=== PATIENT | female | born 1995 | race Caucasian/White ===

== ENCOUNTER 2019-02-13 05:28 | Emergency (ER) | payer BC, OTHER ==
[2019-02-13 06:11] VITALS: TEMP 98; BMI 21.9
--- NOTE | 2019-02-13 07:21 | PDOC ---
History of Present Illness - General Chief Complaint: Vaginal Sxs Stated Complaint: VAGINAL PAIN Time Seen by Provider: 02/13/19 07:20 History Source: Patient Exam Limitations: No Limitations - History of Present Illness Initial Comments: 02/13/19 07:43 23 yo F p/w 1 month of on/off dysuria, and suprapubic pain. Was treated 1 month ago for UTI, has had on/off sx since. Denies hematuria and discharge in urine. Denies vaginal discharge or bleeding. Endorses chills w/ dysuric episodes. No h/o STDs. Sexually active with one partner, not concerned for . No h/o abdominal surgery. LMP / - pt thinks she might be having now but different - spotting. No PMH No Meds No OCPs No Surg. Hx NKDA 02/13/19 07:52 02/13/19 08:00 Past History - Past Medical History Allergies/Adverse Reactions: Allergies Allergy/AdvReac Type Severity Reaction Status Date / Time No Known Allergies Allergy Verified 02/13/19 06:09 Home Medications: Ambulatory Orders NK [No Known Home Medication] 02/13/19 COPD: No - Reproductive History Is Patient Now?: No (unknown at this time) Therapeutic (s) & number: No - Immunization History Immunization Up to Date: Yes - Suicide/Smoking/Psychosocial Hx Smoking History: Never smoked Have you smoked in the past 12 months: No Information on smoking cessation initiated: No Hx Alcohol Use: No Drug/Substance Use Hx: No Review of Systems - Review of Systems Able to Perform ROS?: Yes Is the patient limited [place] proficient: No Constitutional: Yes: Chills. No: Diaphoresis Respiratory: No: Symptoms reported, See HPI, Cough, Orthopnea, Shortness of Breath, SOB with Exertion, SOB at Rest, Stridor, Wheezing, Productive cough, Hemoptysis, Other Cardiac (ROS): No: Symptoms Reported, See HPI, Chest Pain, Edema, Irregular Heart Rate, Lightheadedness, Palpitations, Syncope, Chest Tightness, Other ABD/GI: Yes: Constipated. No: Diarrhea, Nausea, Vomiting : Yes: Burning, Dysuria. No: Discharge *Physical Exam - Vital Signs Last Vital Signs Temp Pulse Resp BP Pulse Ox 98.0 F 70 20 112/81 99 02/13/19 05:35 02/13/19 05:35 02/13/19 05:35 02/13/19 05:35 02/13/19 05:35 - Physical Exam General Appearance: Yes: Nourished, Appropriately Dressed. No: Apparent Distress HEENT: positive: EOMI, PAWAN, Normal Voice, Symmetrical Respiratory/Chest: positive: Lungs Clear, Normal Breath Sounds. negative: Respiratory Distress, Accessory Muscle Use, Rales, Wheezing Cardiovascular: positive: Regular Rhythm, Regular Rate, S1, S2. negative: Murmur Gastrointestinal/Abdominal: positive: Normal Bowel Sounds, Soft. negative: Tender, Guarding, Rebound, Hepatomegaly, Spleenomegaly Medical Decision Making - Medical Decision Making 02/13/19 08:02 23 yo F h/o UTI successfully tx 1 month ago p/w 1 month of on/off dysuria and suprapubic pain. Endorses chills. Denies vaginal discharge or bleeding. Likely UTI - UA, UCx, U-Gn/Ch, UPT 02/13/19 09:27 UPT neg. UA reviewed was on keflex for 5 days previously will treat with macrobid dispo: home with abx 02/13/19 10:19 *DC/Admit/Observation/Transfer Diagnosis at time of Disposition: Urinary tract infection Qualifiers: Urinary tract infection type: acute cystitis Hematuria presence: without hematuria Qualified Code(s): N30.00 - Acute cystitis without hematuria - Discharge Dispostion Disposition: HOME Condition at time of disposition: Good Decision to Admit order: No - Referrals - Patient Instructions Printed Discharge Instructions: DI for Urinary Tract Infection (UTI) Additional Instructions: Please follow up with your primary care doctor in the next 2-3 days about your visit to the Emergency Department. Please return to Emergency Department if you have any of the following: - flank pain - high fevers, chills - inability to eat and drink - Post Discharge Activity
--- NOTE | 2019-02-13 08:38 | PDOC ---
Attending Attestation - Resident Resident Name: David Carter - ED Attending Attestation I have performed the following: I have examined & evaluated the patient, The case was reviewed & discussed with the resident, I agree w/resident's findings & plan, Exceptions are as noted - HPI HPI: 02/13/19 09:33 23y F recent hx of uti presents with intermittent dysuria x 3 weeks associated with interimtent lower abd pain/pressure. pt notes she was treated with an abx approx 1 month ago. pt denies any fever/chills, back pain, diarrhea, vag bleeding, vag discharge. she is i na monagomaous relationship for 1 year. no other complaints - Physicial Exam PE: 02/13/19 09:35 exam: general: no acute distress, well appearing abd soft notnender, no cva tenderness ext: no edema neuro: moving all 4 ext spontaneously and symmetrically - Medical Decision Making 02/13/19 09:35 will ro uti, low risk for utheritis but will send G/C ua suggestive of uti will treat with abx returnp recautions were discussed
[2019-02-13 08:47] LABS: EPI CELLS 2.1 /HPF (0-5/HPF); HCG,QUALITATIVE URINE Negative; HYALINE CASTS 3 /lpf (0-8); PH,URINE 5.5 (5.0-8.0); URINE APPEARANCE CLEAR; URINE BACTERIA 68.6 /hpf (NEGATIVE); URINE BILIRUBIN NEGATIVE (NEGATIVE); URINE COLOR YELLOW; URINE GLUCOSE (UA) NEGATIVE (NEGATIVE); URINE KETONE NEGATIVE (NEGATIVE); URINE LEUK ESTERASE TRACE (NEGATIVE); URINE NITRITE NEGATIVE (NEGATIVE); URINE PROTEIN NEGATIVE (NEGATIVE); URINE RBC 3 /hpf (0-4); URINE UROBILINOGEN 0.2 mg/dL (0.2-1.0); URINE WBC 3 /hpf (0-5)
[2019-02-13] MEDS ORDERED: NITROFURANTOIN MACROCRYSTAL 50 MG CAPSULE (FP) PO SCH (10:30)
[2019-02-13] MEDS ORDERED: NITROFURANTOIN MACROCRYSTAL 50 MG CAPSULE (FP) ONE (10:37)
[2019-02-13 10:44] VITALS: BP 114/80; PULSE 88
== END 2019-02-13 10:48 | disposition home or self-care (01) ==
LOC: JER 05:28
DX: N30.00 Acute cystitis without hematuria (principal)
CPT/HCPCS: 36415; 81003; 84703; 87086; 87491; 87591; 99282-25

== ENCOUNTER 2022-03-31 20:58 | Emergency (ER) | payer BC, OTHER ==
[2022-03-31 21:23] VITALS: BP 113/75; RESP 18; TEMP 98.3; BMI 22.1
[2022-03-31] MEDS ORDERED: ACETAMINOPHEN 500 MG TABLET (FP) PO ONE (22:02)
[2022-03-31] MEDS ORDERED: ACETAMINOPHEN 500 MG TABLET (FP) ONE (22:07)
[2022-03-31 22:47] VITALS: PULSE 95
== END 2022-03-31 22:47 | disposition home or self-care (01) ==
LOC: JER 20:58
DX: U07.1 COVID-19 (principal)
CPT/HCPCS: 0241U-QW; 99283-25

== ENCOUNTER 2022-08-21 15:15 | Inpatient (IN) | payer BC ==
[2022-08-21] MEDS: DEXTROSE 5%-LACTATED RINGERS 1,000 ML IV SCH (16:00)
[2022-08-21] MEDS ORDERED: PROMETHAZINE HCL 25 MG/1 ML VIAL IVPUSH ONE (16:04)
[2022-08-21] MEDS ORDERED: BUTORPHANOL TARTRATE 2 MG/ML VIAL IVPUSH ONE (16:04)
[2022-08-21 17:10] VITALS: BMI 27.7
[2022-08-21] MEDS ORDERED: OXYTOCIN 30 UNITS in 0.9% NS 30 UNIT/500 ML INFUS.BAG IVPB ONE (17:28)
[2022-08-21] MEDS: OXYTOCIN 30 UNITS in 0.9% NS 30 UNIT/500 ML INFUS.BAG IVPB SCH (17:31)
[2022-08-21 19:33] LABS: BASO % 0.4 % (0-2.0); EOS % 1.2 % (0-4.5); HEMATOCRIT 33.6 % (32.4-45.2); HEMOGLOBIN 11.2 GM/dL (10.7-15.3); LYMPH % 22.7 % (8-40); MCH 30.7 pg (25.7-33.7); MCHC 33.4 g/dl (32.0-36.0); MEAN CELL VOLUME 91.9 fl (80-96); MEAN PLT VOLUME 7.8 fl (7.5-11.1); MONO % 9.2 % (3.8-10.2); NEUT % 66.5 % (42.8-82.8); PLATELET COUNT 203 10^3/uL (134-434); RBC 3.66 M/mm3 (3.60-5.2); RDW 13.6 % (11.6-15.6); WHITE BLOOD COUNT 7.7 K/mm3 (4.0-10.0)
[2022-08-21 19:40] LABS: INR 0.89 (0.83-1.09); PROTHROMBIN TIME (PATIENT) 10.2 SEC (9.7-13.0)
[2022-08-21 19:43] LABS: ACTIVATED PTT 27.6 SECONDS (25.2-36.5)
[2022-08-21 19:55] LABS: CALCIUM 8.4 mg/dL (8.5-10.1)
[2022-08-21 19:56] LABS: BLOOD UREA NITROGEN 6.8 mg/dL (7-18)
[2022-08-21 19:59] LABS: CREATININE 0.4 mg/dL (0.55-1.3)
[2022-08-22] MEDS ORDERED: BUTORPHANOL TARTRATE 2 MG/ML VIAL ONE (04:39)
[2022-08-22] MEDS ORDERED: PROMETHAZINE HCL 25 MG/1 ML VIAL ONE (04:39)
[2022-08-22] MEDS ORDERED: OXYTOCIN 20 UNITS in 0.9% NS 20 UNIT/1,000 ML INFUS.BAG IV ONE (06:16)
[2022-08-22 07:28] LABS: CORD BASE EXCESS -4.2 mmol/L (0-2); CORD BASE EXCESS -4.7 mmol/L (0-2); CORD HCO3 21.3 mmHg (20-29); CORD HCO3 22.3 mmHg (20-29); CORD PCO2 40.5 mmHg (30-78); CORD PCO2 47.6 mmHg (30-78); CORD pH 7.288 (7.14-7.44); CORD pH 7.339 (7.14-7.44)
[2022-08-22] MEDS ORDERED: BENZOCAINE 20% 57 GM BOTTLE TP PRN (08:04)
[2022-08-22] MEDS ORDERED: ACETAMINOPHEN 325 MG TABLET (FP) PO PRN (08:04)
[2022-08-22] MEDS ORDERED: METHYLERGONOVINE MALEATE 0.2 MG/1 ML AMP IM PRN (08:04)
[2022-08-22] MEDS ORDERED: oxyCODONE HCL 5 MG TABLET PO PRN (08:04)
[2022-08-22] MEDS ORDERED: BENZOCAINE 28 GM HEMORRHOIDAL OINTMENT TP PRN (08:04)
[2022-08-22] MEDS ORDERED: BISACODYL 10 MG SUPP.RECT RC PRN (08:04)
[2022-08-22] MEDS ORDERED: WITCH HAZEL 50% (TUCKS) 40 PAD/JAR PAD TP PRN (08:04)
[2022-08-22] MEDS ORDERED: OXYTOCIN 20 UNITS in 0.9% NS 20 UNIT/1,000 ML INFUS.BAG IV SCH (08:15)
[2022-08-22] MEDS: IBUPROFEN 600 MG TABLET (FP) PO PRN ×2 (10:28→17:44)
[2022-08-23 08:25] LABS: BASO % 0.4 % (0-2.0); EOS % 1.2 % (0-4.5); HEMATOCRIT 29.5 % (32.4-45.2); HEMOGLOBIN 9.8 GM/dL (10.7-15.3); LYMPH % 23.6 % (8-40); MCH 30.9 pg (25.7-33.7); MCHC 33.3 g/dl (32.0-36.0); MEAN CELL VOLUME 92.8 fl (80-96); MEAN PLT VOLUME 7.5 fl (7.5-11.1); MONO % 8.8 % (3.8-10.2); PLATELET COUNT 166 10^3/uL (134-434); RBC 3.17 M/mm3 (3.60-5.2); RDW 13.4 % (11.6-15.6); WHITE BLOOD COUNT 8.8 K/mm3 (4.0-10.0)
[2022-08-23] MEDS ORDERED: FLU VACC QS2022-23(6MOS UP)/PF 60 MCG/0.5 ML SYRINGE IM ONE (10:00)
[2022-08-23] MEDS: DOCUSATE SODIUM 100 MG CAPSULE (FP) PO SCH (17:27)
[2022-08-23] MEDS: IBUPROFEN 600 MG TABLET (FP) PO PRN ×2 (17:27→22:04)
[2022-08-23] MEDS: DEXTROSE 5%-LACTATED RINGERS 1,000 ML IV SCH ×2 (19:49→19:52)
[2022-08-23] MEDS: OXYTOCIN 30 UNITS in 0.9% NS 30 UNIT/500 ML INFUS.BAG IVPB SCH ×2 (19:49→19:52)
[2022-08-23] MEDS ORDERED: SENNOSIDES/DOCUSATE COMBO (SENNA PLUS) TABLET (UD) PO PRN (22:00)
[2022-08-23 22:29] VITALS: RESP 18
[2022-08-24] MEDS: IBUPROFEN 600 MG TABLET (FP) PO PRN (09:01)
[2022-08-24] MEDS: DOCUSATE SODIUM 100 MG CAPSULE (FP) PO SCH (09:01)
[2022-08-24 10:15] VITALS: BP 127/84; PULSE 100; TEMP 97.8
== END 2022-08-24 12:45 | disposition home or self-care (01) | DRG 807 ==
LOC: JDEL 15:15 → JLDR 15:50 → J3W 08-22 09:15
PROVIDERS: ADMIT Obstetrics & Gynecology; ATTEND Obstetrics & Gynecology
PROC: 10E0XZZ Delivery of Products of Conception, External Approach (ICD-10-PCS; principal; 2022-08-22)
PROC: 0W8NXZZ Division of Female Perineum, External Approach (ICD-10-PCS; 2022-08-22)
PROC: 10907ZC Drainage of Amniotic Fluid, Therapeutic from Products of Conception, Via Natural or Artificial Opening (ICD-10-PCS; 2022-08-22)
DX: O80 Encounter for full-term uncomplicated delivery (principal); Z37.0 Single live birth; Z3A.38 38 weeks gestation of pregnancy
CPT/HCPCS: 36415; 36600; 59409; 80048; 82803; 85025; 85610; 85730; 86780; 86850; 86900; 86901; C9803-CS; G0008; Q2036; U0003; U0005